=== PATIENT | male | born 1960 | race Caucasian/White ===

== ENCOUNTER 2017-05-30 08:33 | Emergency (ER) | payer SELFPAY ==
--- NOTE | ~2017-05-30 | ER ---
PATIENT'S NAME: LOUIS DALTON [facility] AGE: 57 Y [address] ROOM: [place] [address] LOCATION: [facility] ADMIT DATE: 05/30/2017 ER/Outpatient Report DISCHARGE DATE: 05/30/2017 FAMILY PHYSICIAN: DALTON SALMON ATTENDING PHYSICIAN: Kristi Monroy TIME OF ARRIVAL: 0833 hours. TIME SEEN: 1008 hours. IDENTIFICATION: A 57-year-old male. CHIEF COMPLAINT: Left arm pain. HISTORY OF PRESENT ILLNESS: The patient is a 57-year-old male who fell down full set of stairs 2 weeks ago and at that time injured his left wrist. He thought it was just sprained, has continued to go about his business. It has continued to hurt, but today picked up a ladder and felt something in his wrist, had increased pain and pop with increase in swelling. No other problems or concerns. No new injury. ALLERGIES: TO CODEINE CAUSES NAUSEA AND VOMITING. CURRENT MEDICATIONS: He denies. PAST MEDICAL PROBLEMS: Hypertension, currently not on any medications. PAST SURGICAL HISTORY: Prior Surgeries: Left shoulder surgery. SOCIAL HISTORY: The patient lives here in [place]. He is self employed. Tobacco use, half pack per day. Alcohol use, occasional. Drug use, denies. FAMILY HISTORY: No pertinent family history. REVIEW OF SYSTEMS: PATIENT'S NAME: LOUIS DALTON [facility] AGE: 57 Y [address] ROOM: [place] [address] LOCATION: [facility] ADMIT DATE: 05/30/2017 ER/Outpatient Report DISCHARGE DATE: 05/30/2017 FAMILY PHYSICIAN: PHYSICIAN, DALTON ATTENDING PHYSICIAN: Kristi Monroy All systems were reviewed and negative other than what is noted in the HPI. PHYSICAL EXAMINATION: VITAL SIGNS: Weight 72.8 kg. Blood pressure 167/107, pulse 79, respiratory rate 20, temperature 96.8, and saturations 97% on room air. GENERAL: A 57-year-old male in no acute distress. HEENT: Head: Normocephalic and atraumatic. Ears: TMs translucent both ears. Eyes: Pupils are equal and reactive to light and accommodation. Extraocular movements intact. Nose: Mucosa pink. No lesions. Mouth: No lesions. Pharynx benign. NECK: Supple. No lymphadenopathy. LUNGS: Clear to auscultation. HEART: Regular rate and rhythm. ABDOMEN: Soft, nondistended, and nontender. SKIN: [place], warm, and dry. No lesions or rashes noted. NEURO: The patient is alert and oriented x4. Cranial nerves 2 through 12 grossly intact. Motor strength 5/5 throughout. Sensation is intact to light touch. EXTREMITIES: Right upper extremity: Full range of motion. No deformities. Good distal pulses. Sensation is intact. Left upper extremity: Decreased range of motion secondary to pain at his wrist. He has some slight swelling over the radial aspect, tender to palpation. No palpable deformities. IMAGING DATA: X-ray reveals a nondisplaced comminuted intra-articular fracture of the distal radius. Pending Radiology over-read. IMPRESSION: Left distal radius fracture. PLAN: Discussed with Dr. Monzon and Dr. Vicente. Cock-up wrist splint, ice, elevate. Tylenol or Advil for pain. The patient was given [place] here 5/325 x 1. He was given a script for [place] 5/325 one to two p.o. q.4-6 hours p.r.n. pain, dispensed [address] with [address] Vicente will see him today in the clinic to make arrangements for ORIF next week. The patient understands and agrees, and all questions have been answered. KRISTI MONROY MD CAR/modl PATIENT'S NAME: KRYSTLE LOUIS Gaytan [facility] AGE: 57 Y [address] ROOM: [place] [address] LOCATION: [facility] ADMIT DATE: 05/30/2017 ER/Outpatient Report DISCHARGE DATE: 05/30/2017 FAMILY PHYSICIAN: PHYSICIAN, NO ATTENDING PHYSICIAN: Kristi Monroy /[id number] d: 05/30/171747 t: 05/31/171734, OUTPATIENT REPORT
[2017-06-04] MEDS ORDERED: NORVASC10 MG PO (14:36)
[2017-06-04] MEDS ORDERED: LISINOPRIL-HCT1 EAC1 PO (14:37)
[2017-06-05] MEDS ORDERED: PERCOCET 5-3251 EACH PO (13:04)
== END 2017-05-30 10:48 | disposition disaster alternative care site (69) ==
LOC: GMED 08:33
PROC: 2W3DX1Z Immobilization of Left Lower Arm using Splint (ICD-10-PCS; principal; 2017-05-30)
DX: S52.502A Unspecified fracture of the lower end of left radius, initial encounter for closed fracture (principal); I10 Essential (primary) hypertension; W10.9XXA Fall (on) (from) unspecified stairs and steps, initial encounter

== ENCOUNTER → 2017-06-05 | Day surgery (SDC) | payer SELFPAY ==
[~2017-06-05] VITALS: Ht 180.3 cm; Wt 69.7 kg
[~2017-06-05] MED LIST: LISINOPRIL-HCT1 EAC1 PO; NORVASC10 MG PO; PERCOCET 5-3251 EACH PO
--- NOTE | ~2017-06-05 | OR ---
PATIENT'S NAME: LOUIS LEIVA [facility] AGE: 57 Y [address] ROOM: [place] [address] LOCATION: [facility] ADMIT DATE: 06/05/2017 OR/Procedure Report DISCHARGE DATE: FAMILY PHYSICIAN: PHYSICIAN, NO ATTENDING PHYSICIAN: JOSE D POWELL SURGEON: Jose D Powell MD WINDOW SASH INSTALLER: Brenden Monzon PA-C DATE OF PROCEDURE: 06/05/2017 PREOPERATIVE DIAGNOSIS: Left intra-articular distal radius fracture. POSTOPERATIVE DIAGNOSIS: Left intra-articular distal radius fracture. PROCEDURES PERFORMED: 1. Open reduction and internal fixation of left intra-articular distal radius fracture. 2. Use of intraoperative fluoroscopy, less than 1 hour. ANESTHESIA: LMA with general and peripheral nerve block. SPECIMENS: None. COMPLICATIONS: None. TOURNIQUET: Left proximal arm at 250 mmHg. ESTIMATED BLOOD LOSS: Minimal. FLUIDS: See Anesthesia report. DISPOSITION: Stable in PACU. COUNTS: All counts were correct. IMPLANTS: Include a Synthes left periarticular distal radius locking plate and screws. INDICATIONS: Mr. Leiva is a pleasant 57-year-old gentleman, who underwent the noted procedures above. The risks, benefits, and alternatives pursuing a surgical intervention were discussed with the patient in detail. He elected to proceed with surgery. I marked the patient's left upper extremity indicating the correct surgical site. Informed consent was obtained. The patient elected to proceed with surgery. Anesthesia was consulted for their perioperative evaluation of the patient. PATIENT'S NAME: LOUIS LEIVA [facility] AGE: 57 Y [address] ROOM: [place] [address] LOCATION: [facility] ADMIT DATE: 06/05/2017 OR/Procedure Report DISCHARGE DATE: FAMILY PHYSICIAN: PHYSICIAN, NO ATTENDING PHYSICIAN: JOSE D POWELL DESCRIPTION OF PROCEDURE: Operative Report in Detail: The patient was brought from the holding area to the operating room. A time-out was performed. Antibiotics were administered. The left upper extremity was then prepped and draped in a sterile fashion. I turned my attention to the left wrist. An Esmarch was used to exsanguinate the limb and the tourniquet was inflated to 250 mmHg. I believe there was swelling at the wrist. Using a #15 blade knife, I made a trans-FCR incision to access the volar aspect of the wrist. The skin incision was carried through the skin and subcutaneous tissue. I retracted the flexor carpi radialis tendon radially and then dissected the interval down to the pronator quadratus. I sharply dissected the left radial cuff and retracted the pronator quadratus ulnarly. I identified the fracture site. There appeared to be healing. It was difficult to discern whether or not this fracture was acute on chronic. I used an osteotome and mallet and was able to identify the fracture and then manipulate it. I introduced intraoperative fluoroscopy and I performed a closed reduction of the fracture. I attempted to restore radial height and the radial inclination volar tilt. The radial styloid fragment extended intra-articularly. Using a [id number]-swmrh clamp, I reduced this fragment. I also pinned the radius with the pin running from the styloid into the radial shaft in order to restore my volar tilt and maintain the radial height. I selected a plate and provisionally pinned it in place. I confirmed its position fluoroscopically. I began by attempting to achieve distal fixation, by first drilling for, measuring, and placing a compression screw on the distal row of the plate. I then placed a drilled for, measured, and placed a locking screw next to it to achieve two points of fixation at the distal end of the plate. Once I was satisfied with this preliminary distal fixation, I subsequently drilled for, measured, and placed a compression screw in the oblong hole of the shaft. With my physician assistant plant manager holding the wrist out to length and tilting the wrist volarly, I was able to compress the plate down to the shaft and maintain the radial height and restore the volar tilt and radial inclination. I then turned my attention to the radial styloid piece that I provisionally closed, reduced, and clamped and pinned. I subsequently drilled for, measured, and placed a locking screw. I filled the distal row with locking screw to achieve additional points of fixed angle fixation. I then turned my attention back to the proximal portion of the plate. I drilled for, measured, and placed 2 more compression screws on the shaft. Final fluoroscopic images were taken and revealed evidence of a successful PATIENT'S NAME: LOUIS LEIVA [facility] AGE: 57 Y [address] ROOM: [place], [place] [address] LOCATION: [facility] ADMIT DATE: 06/05/2017 OR/Procedure Report DISCHARGE DATE: FAMILY PHYSICIAN: PHYSICIAN, NO ATTENDING PHYSICIAN: JOSE D POWELL open reduction and internal fixation of a left intra-articular distal radius fracture in near anatomic position. The wound was then copiously irrigated with a normal sterile saline solution. I repaired the pronator quadratus using an 0 Vicryl suture to cover the plate. I then used 2-0 Vicryl suture and 3-0 Vicryl suture to approximate the subcutaneous tissue. Prineo was used to approximate the skin. The tourniquet was let down. The hand reperfused. After the Prineo dried, the patient was placed into a well-padded volar slab on the left upper extremity. The patient was then transferred to the operating room table on the stretcher and extubated. He was brought to the recovery room in stable condition. There were no intraoperative complications noted. Of note, my PA, Brenden Monzon PA-C, played an integral role in the intraoperative care of this patient. This included preoperative positioning, intraoperative expert retraction, and closing and splinting functions. IMPRESSION: The patient is status post the noted procedures above. PLAN: The patient will be nonweightbearing on the left upper extremity. I encouraged to rest, ice, and elevate the arm going forward. We provided a sling for comfort. He does have a splint to help immobilize the arm as well. Postoperative pain control will be in the form of Percocet. The patient will be discharged to home from the PACU provided he meets PACU discharge criteria. He will follow up in the office in 2 weeks for his first postoperative visit. MD BRENDON YA/ayanna /[id number] d: 06/05/17 1503 t: 06/05/17 1723, OPERATIVE SUMMARY
== END | disposition disaster alternative care site (69) ==
LOC: GPOC 05-31 16:00 → GSDC 08:35
PROC: 0PSJ04Z Reposition Left Radius with Internal Fixation Device, Open Approach (ICD-10-PCS; principal; 2017-06-05)
DX: S52.572A Other intraarticular fracture of lower end of left radius, initial encounter for closed fracture (principal); I10 Essential (primary) hypertension; M19.90 Unspecified osteoarthritis, unspecified site; Z87.891 Personal history of nicotine dependence; Z88.5 Allergy status to narcotic agent; Z98.890 Other specified postprocedural states; W01.0XXA Fall on same level from slipping, tripping and stumbling without subsequent striking against object, initial encounter
CPT/HCPCS: C1713; J0690; J2001; J2250; J7120

== ENCOUNTER 2017-06-06 07:11 | Emergency (ER) | payer SELFPAY ==
--- NOTE | ~2017-06-06 | ER ---
PATIENT'S NAME: LOUIS DALTON [facility] AGE: 57 Y [address] ROOM: [place] [address] LOCATION: [facility] ADMIT DATE: 06/06/2017 ER/Outpatient Report DISCHARGE DATE: FAMILY PHYSICIAN: PHYSICIAN, NO ATTENDING PHYSICIAN: Eliazar Liao Time of Arrival: 0711 hours Time of Evaluation: 0716 hours CHIEF COMPLAINT: Pain. HISTORY OF PRESENT ILLNESS: The patient is a 57-year-old male, who presents to the emergency department today with chief complaint of pain in his left wrist. He reports this started last night. The patient underwent operative repair by Dr. Vicente yesterday. He reports his pain medicines and Percocet are not working. He had trouble sleeping all night due to the pain. It is sharp pain, it is currently 10/10 in severity. PAST MEDICAL HISTORY: Hypertension. PAST SURGICAL HISTORY: Left shoulder. SOCIAL HISTORY: The patient lives in [place]. Smokes half pack per day. Drinks 3-4 beers plus whiskey daily. Denies any illicit drug use. ALLERGIES: TO CODEINE. MEDICATIONS: Please see list. PRIMARY CARE DOCTOR: Orthopedic surgeon, Dr. Deniz Vicente. REVIEW OF SYSTEMS: All systems are reviewed by myself and are negative with the exception of those discussed in the HPI and past medical history. PHYSICAL EXAMINATION: VITAL SIGNS: Weight is 73.2 kg, blood pressure 161/96, pulse 95, respiratory PATIENT'S NAME: LOUIS DALTON [facility] AGE: 57 Y [address] ROOM: [place] [address] LOCATION: [facility] ADMIT DATE: 06/06/2017 ER/Outpatient Report DISCHARGE DATE: FAMILY PHYSICIAN: PHYSICIAN, NO ATTENDING PHYSICIAN: Eliazar Liao rate 16, temperature 98.1, oxygen saturation 96% on room air. GENERAL: The patient is a 57-year-old male, who appears stated age, in mild acute distress. HEENT: Normocephalic, atraumatic. Pupils are equal, round, and reactive to light. NECK: Supple. There is no nuchal rigidity. CARDIOVASCULAR: Regular rate and rhythm. LUNGS: Clear to auscultation bilaterally. ABDOMEN: Soft, nontender, and nondistended. MUSCULOSKELETAL: The patient does have a cast in place to the left arm. He does have motion in his fingers. SKIN: Cap refill is less than 2 seconds. There is some swelling noted of the fingers. LABORATORY DATA AND X-RAYS: None. IMPRESSION: 1. Acute postop pain, status post left intra-articular distal radius fracture. 2. Initial visit. EMERGENCY DEPARTMENT COURSE: The patient was brought back to the examination room. Seen and evaluated by myself. The patient's old records are reviewed by myself. History and physical performed as described above. I have discussed the case with Dr. Vicente, the patient's orthopedic surgeon. We will attempt to get the patient's pain tolerable. He is given 5 mg of morphine IM. We have discussed that if the patient continues to have pain, he has to follow up with Dr. Vicente' office in 1 to 2 days for re-evaluation. I have discussed return to care instructions including worsening symptoms or any other concerns to return to the emergency department as soon as possible. The patient is agreeable without further questions at this time. DISPOSITION: The patient is discharged home in good condition. DO RL SCHULTZ/modl PATIENT'S NAME: LOUIS DALTON [facility] AGE: 57 Y [address] ROOM: [place] [address] LOCATION: [facility] ADMIT DATE: 06/06/2017 ER/Outpatient Report DISCHARGE DATE: FAMILY PHYSICIAN: PHYSICIAN, NO ATTENDING PHYSICIAN: Eliazar Liao /[id number] d: 06/06/17 0753 t: 06/06/17812, OUTPATIENT REPORT
== END 2017-06-06 07:54 | disposition disaster alternative care site (69) ==
LOC: GMED 07:11
DX: G89.18 Other acute postprocedural pain (principal); M25.532 Pain in left wrist; I10 Essential (primary) hypertension; F17.210 Nicotine dependence, cigarettes, uncomplicated; Z88.5 Allergy status to narcotic agent; Z98.890 Other specified postprocedural states; Z79.899 Other long term (current) drug therapy
CPT/HCPCS: J2270